=== PATIENT | male | born 1965 | race Two or more races ===

== ENCOUNTER 2021-06-14 09:40 | Inpatient (IN) | payer OTHER ==
[~2021-06-14] VITALS: Ht 182.9 cm; Wt 113.4 kg
[2021-06-14] MEDS ORDERED: LOSARTAN-HCTZ1 EAC1 PO (10:23)
[2021-06-15] MEDS ORDERED: HYDROXYZINE PAM50 MG (10:40)
[2021-06-15] MEDS ORDERED: NORFLEX100MG (10:40)
[2021-06-15] MEDS ORDERED: KETOROLAC TROME10 MG (10:40)
[2021-06-16] MEDS ORDERED: KETO10TA2 PO (12:05)
[2021-06-16] MEDS ORDERED: NEURONTIN300 MG PO (12:07)
[2021-06-16] MEDS ORDERED: COLACE100 MG PO (12:08)
== END 2021-06-16 13:59 | disposition home or self-care (01) | DRG 355 ==
LOC: ER 09:40 → SURG 16:49
PROVIDERS: ADMIT Surgery; ATTEND Surgery
PROC: 0DBU4ZZ Excision of Omentum, Percutaneous Endoscopic Approach (ICD-10-PCS; 2021-06-15)
PROC: 0WUF4JZ Supplement Abdominal Wall with Synthetic Substitute, Percutaneous Endoscopic Approach (ICD-10-PCS; principal; 2021-06-15 08:15)
DX: K42.0 Umbilical hernia with obstruction, without gangrene (principal); I10 Essential (primary) hypertension; F17.210 Nicotine dependence, cigarettes, uncomplicated; Z20.822 Contact with and (suspected) exposure to COVID-19